=== PATIENT | female | born 1985 | race Caucasian/White ===

== ENCOUNTER 2017-10-16 12:42 | Emergency (ER) | payer OTHER ==
[~2017-10-16 12:42] MED LIST: IBUP600 PO; OXYC1SOL5 PO; PERI8.6T PO; PREN0.01 PO
--- NOTE | 2017-10-16 13:20 | PD ---
HPI . 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 She states that the patient inadvertently cough some sputum into her left eye. She has copiously irrigated her eye. She has been sent to us for initial Workmen's Comp. evaluation. She has no complaints. [facility] Social History Alcohol Use: No Tobacco Use: No Allergies-Medications (Allergen,Severity, Reaction): Coded Allergies: brompheniramine (Unverified Allergy, Intermediate, RASH, 04/20/17) phenylpropanolamine (Unverified Allergy, Intermediate, RASH, 04/20/17) Reported Meds & Prescriptions Reported Meds & Active Scripts Active Oxycodone/Acetaminophen 5 mg/325 mg 1 Tab Tab 1 Tab PO Q4H PRN Nicolette-Colace 8.6-50 mg (Sennosides-Docusate Sodium) 1 Tab Tab 2 Tab PO Q12H PRN Motrin 600 Mg Tab (Ibuprofen) 600 Mg Tab 600 Mg PO Q6H PRN Reported Vit ( Plus) (Prenat Multivit/[employer]/Iron/Folic Ac) Tab 1 Tab PO DAILY Review of Systems Except as stated in HPI: all other systems reviewed are Neg Physical Exam Narrative GENERAL: Awake and alert and in no acute distress. SKIN: Warm and dry. HEAD: Normocephalic/atraumatic. EYES: Pupils are equal. Extraocular movements are intact. NECK: Normal range of motion. Distally RESPIRATORY: Nonlabored respirations. MUSCULOSKELETAL: Atraumatic. NEUROLOGICAL: Nonfocal. PSYCHIATRIC: Appropriate mood and affect. MDM Medical Decision Making Medical Screen Exam Complete: Yes Emergency Medical Condition: Yes Differential Diagnosis Differential diagnosis of blood and body fluid exposure includes but is not limited to significant exposure to intact skin, exposure to a non-HIV or hepatitis infected patient, exposure to an HIV or hepatitis infected patient. Narrative Course This patient presents to us after being exposed to a patient sputum in her eye. The appropriate labs have been drawn. The source patient is known and will be tested. This patient will not be started on PEP pending results from the source patient. Diagnosis Primary Impression: Employee exposure to body fluids Referrals: Employ Med Disposition: 01 DISCHARGE HOME Condition: Stable Cat Kwok MD Oct 16, 2017 13:20
[2017-10-16 14:02] VITALS: BP 110/60; PULSE 82; RESP 16; TEMP 98.1; O2SAT 99
== END 2017-10-16 14:17 | disposition home or self-care (01) ==
LOC: NEPD 12:42
DX: Z77.21 Contact with and (suspected) exposure to potentially hazardous body fluids (principal); Z79.899 Other long term (current) drug therapy
CPT/HCPCS: 99282